=== PATIENT | female | born 1955 | race Caucasian/White ===

== ENCOUNTER 2022-07-12 08:22 | Day surgery (SDC) | payer OTHER ==
[~2022-07-12] VITALS: Ht 157.5 cm; Wt 78.9 kg
[~2022-07-12 08:22] MED LIST: AMLODIPINE BES2.5 MG PO; BRIMONIDINE TART5 ML OPTH; CLOPIDOGREL75 MG PO; ESTRADIOL0.5 MG PO; FISH OIL 1,2001 EACH PO; LIPITOR40 MG PO; LISINOPRIL40 MG PO; LOW DOSE ASPIRI81 MG PO; MEDROXYPROGEST2.5 MG PO; METOPROLOL SUCC25 MG PO; PREDNISONE20 MG PO; TIMOPTIC5 M1 OPTH; VITAMIN C60 MG PO; VITAMIN D350 MCG PO
--- NOTE | 2022-07-12 10:03 | NUR ---
07/12/22 Sofía3 Taniya Paniagua 0997-PATIENT ARRIVED TO PACU ON 2L NC RR EVEN. PATIENT REACTIVE TO VERBAL STIMULI ABDOMEN SOFT. IVF INFUSING. 1003-PATIENT SLEEPING 2L NC RR EVEN 100%
--- NOTE | 2022-07-12 11:38 | NUR ---
LE 1130 PATIENT BACK FROM PACU. REPORT RECIEVED FROM LIZY MORGAN. PATIENT IS ALERT AND ORIENTED. BREATHING EQUAL AND UNLABORED. OXYGEN SATURATIONS ABOVE 95% ON ROOM AIR. PATIENT DENIES ANY PAIN OR BEING NAUSEATED. PATIENT SALINE LOCKED. PATIENT AT BEDSIDE. CALL LIGHT WITHIN REACH NO FUTHER NEEDS. NO QUESTIONS AT THIS TIME.
--- NOTE | 2022-07-13 08:02 | OR ---
[facility] [address] [place], [place] [address] Signed DATE OF OPERATION: 07/12/2022 SURGEON: Purnima Acevedo MD PREOPERATIVE DIAGNOSES: 1. Personal history of colonic polyps in 2016 at age 58. 2. Diverticulosis. 3. Hemorrhoids. 4. External anal skin tag x1. POSTOPERATIVE DIAGNOSES: 1. Small to moderate sized anterior midline external anal skin tag. 2. Minimal sigmoid diverticulosis. 3. 3 mm polyps x2 at 7 cm. PROCEDURE: Colonoscopy with hot biopsy. ESTIMATED BLOOD LOSS: None. INDICATIONS: Milly is a 66-year-old female, who comes for followup colonoscopy. Her screening colonoscopy in 2016 at the age of 58 showed an anterior midline anal skin tag. There was some concern about minimal hemorrhoids and minimal diverticulosis. She also had a 5 mm tubular adenomatous polyp removed. She had done well with the Versed and fentanyl. We asked her to return in 5 years. About a year ago, she was having some chest pain and was found to have a heart murmur. She went to see her lifter, Dr. Rosalinda Lopez. Apparently everything came out fine. She is actually scheduled to see her lifter tomorrow for just general followup. She has no lower GI complaints. There is no family history of colon cancer or polyps. In the office, I gave her a pamphlet on colonoscopy. She recalls the nature of the test. There is risk including, but not limited to gas bloating, crampy abdominal pain, bleeding, perforation requiring surgery, and missed diagnosis. We also reviewed the written instructions for the bowel prep line by line. She recalls the need for IV conscious sedation. She expressed understanding and wished to proceed. PROCEDURE NOTE: Milly was taken into our endoscopy suite and placed in the left lateral decubitus position. She was given IV sedation with 6 mg of Versed and 150 mcg of fentanyl. A Electronically Signed By: PURNIMA ACEVEDO MD 07/13/22 0802 PATIENT NAME: MILLY CASTILLO OPERATIVE REPORT DATE OF : 59 REPORT #: [id number] PHYSICIAN: PURNIMA ACEVEDO MD PCP: JAIMIE ROBLES [facility] REPORT IS CONFIDENTIAL AND NOT TO BE RELEASED WITHOUT AUTHORIZATION [facility] [address] [place], [place] [address] Signed digital rectal exam was performed and she does have a small to moderate sized external anal skin tag in her anterior midline. She had good sphincter tone. Very little in the way of external hemorrhoids. No masses noted. The adult colonoscope was introduced, advanced all around into the cecum under direct visualization of the camera without difficulty. Her prep was quite excellent. We could easily see the appendiceal orifice and the ileocecal valve. The scope was then slowly withdrawn. We took pictures throughout for photodocumentation. She does have sigmoid diverticulosis. They were small to moderate in size, few in number, and scattered about. Once in the rectum, she had two tiny polyps at 7 cm, which were easily removed with a hot biopsy forceps. Upon retroflexion of the scope, I really did not see much in the way of any internal hemorrhoid tissue. After this, the gas was suctioned out and the colonoscope removed. Milly tolerated the procedure quite well. RECOMMENDATIONS: I will see Milly back in my office in 7 to 14 days to review her results. She will probably be on the five year plan. Purnima Acevedo MD [facility]/MODL /[id number] cc: SHARIF Silva MD Copies: JAIMIE ROBLES ANDREW L MD ~ Electronically Signed By: PURNIMA ACEVEDO MD 07/13/22 0802 PATIENT NAME: MILLY CASTILLO OPERATIVE REPORT DATE OF : 59 REPORT #: [id number] PHYSICIAN: PURNIMA ACEVEDO MD PCP: JAIMIE ROBLES REPORT IS CONFIDENTIAL AND NOT TO BE RELEASED WITHOUT AUTHORIZATION
--- NOTE | 2022-07-16 14:17 | PATH ---
[facility] [address] [place], [place] [address] Signed SPECIMEN(S): A RECTAL POLYP AT 7CM SPECIMEN SOURCE: A. RECTAL POLYP AT 7CM CLINICAL HISTORY: History of polyps, diverticulosis, polyps. Postop: Diverticulosis, external anal skin tag, rectal polyps. FINAL PATHOLOGIC DIAGNOSIS: Rectal polyp at 7 cm: - Hyperplastic polyp (one fragment). JVR:[id number] MICROSCOPIC EXAMINATION: Histologic sections of all submitted blocks are examined by light microscopy. These findings, together with the gross examination, support the pathologic diagnosis. GROSS DESCRIPTION: The specimen, labeled and designated "Hascall, rectal polyp at 7 cm," is received in formalin and consists of one nj soft tissue fragment, 0.3 cm. Entirely submitted in (A1). JS (under the direct supervision of a pathologist) The Gross Description was prepared using a voice recognition system. The report was reviewed for accuracy; however, sound-alike word errors, addition and/or deletions may occur. If there is any question about this report, please contact Client Services. PERFORMING LABORATORY: The technical component was performed by [facility], [address] [place] [id number] (CLIA# [id number]). Professional interpretation was performed by [facility], [address] [place] [id number] (CLIA#: [id number]). Diagnostician: Nickolas Sellers MD Pathologist Electronically Signed 07/16/2022 PATIENT NAME: MILLY CASTILLO PATHOLOGY DATE OF : 59 REPORT #: [id number] PHYSICIAN: GIGI SALAS PCP: JAIMIE ROBLES PAC REPORT IS CONFIDENTIAL AND NOT TO BE RELEASED WITHOUT AUTHORIZATION
== END 2022-07-12 11:50 | disposition home or self-care (01) ==
LOC: OPS 08:22 → DS 08:22 → OPS 09:45 → DS 09:45 → OPS 11:50
PROVIDERS: ATTEND Colon & Rectal Surgery
PROC: 0DDM8ZX Extraction of Descending Colon, Via Natural or Artificial Opening Endoscopic, Diagnostic (ICD-10-PCS; principal; 2022-07-12 09:45)
DX: Z12.11 Encounter for screening for malignant neoplasm of colon (principal); K62.1 Rectal polyp; I10 Essential (primary) hypertension; K57.30 Diverticulosis of large intestine without perforation or abscess without bleeding; E78.00 Pure hypercholesterolemia, unspecified; K64.0 First degree hemorrhoids; R01.1 Cardiac murmur, unspecified; K64.4 Residual hemorrhoidal skin tags; Z86.010 Personal history of colon polyps
CPT/HCPCS: 99153; G0500; J2250; J3010; J7121

== ENCOUNTER 2022-08-24 05:40 | Day surgery (SDC) | payer MEDICARE, OTHER ==
[~2022-08-24] VITALS: Ht 157.5 cm; Wt 76.0 kg
[~2022-08-24 05:40] MED LIST changes: -ESTRADIOL0.5 MG PO; +ESTRADIOL0.5 MG TD; +MULTI VITAMIN1 EACH PO
[2022-08-24] MEDS ORDERED: TRAMADOL HCL50 MG PO (07:28)
--- NOTE | 2022-08-24 07:45 | NUR ---
08/24/22 0745 Dejah Joseph 0772 PT ARRIVED TO PACU, RESP EVEN AND UNLABORED BUT SHALLOW. PT STARTED MOVING IN BED AND RN REORIENTING PT TO PACU. PT DENIES PAIN. PT EYES REMAIN CLOSED. SMALL AMOUNT OF SNORING NOTED AND HOB INCREASED SLIGHTLY. 0718 O2 MASK REMOVED, PT GRABBING FOR HER FACE AND RN HELPS PT REST ARMS DOWN AND RIGHT HAND ON ICE AND PILLOW. RN ENCOURAGES PT TO REST ARM. PT REPORTS NUMBNESS IN HAND AND EDUCATION GIVEN. PT ASKING QUESTIONS AND TALKING TO RN. PLAN OF CARE DISCUSSED. 0731 PT RESTING IN BED AND CONTINUES TO DENY PAIN AND NAUSEA. WARM BLACKET PLACED.
--- NOTE | 2022-08-24 09:22 | OR ---
[facility] [address] [place], [place] [address] Signed DATE OF OPERATION: 08/24/2022 SURGEON: Shasta Quintana MD PREOPERATIVE DIAGNOSIS: Carpal tunnel syndrome, right. POSTOPERATIVE DIAGNOSIS: Carpal tunnel syndrome, right. PROCEDURE PERFORMED: Carpal tunnel release, right. CONTACT LENS BLOCKER: None. ANESTHESIA: Nneka block. TOURNIQUET TIME: 20 minutes. BRIEF HISTORY: Milly is a 67-year-old female with progressive worsening numbness and pain in her wrist and hand. Nerve conduction studies were consistent with the above. Risks and benefits of operative treatment were discussed with her. She elected to proceed DESCRIPTION OF OPERATION: Once consent was obtained, she was taken to the operating room. After adequate anesthesia, she was left on the day surgery bed and hand table was brought in. The arm was prepped and draped in the standard sterile fashion. A 1.5 cm incision was made in the distal wrist crease, carried through the skin and subcutaneous tissue. The palmaris longus was identified, retracted and protected. The soft tissue was dissected off the transverse carpal ligament under loupe magnification, this was dissected free distally and proximally. The ligament was then transected approximately a cm and distally to the distal extent again under direct visualization with . This was then palpated using a [place] and found to be completely released. The wound was copiously irrigated with normal saline, closed with 3-0 nylon and injected with 7 mL of plain 0.25% Marcaine. Wound was dressed with bacitracin, Adaptic, 4 x 8s, and gauze. She tolerated the Electronically Signed By: SHASTA QUINTANA MD 08/24/22 0922 PATIENT NAME: MILLY CASTILLO OPERATIVE REPORT DATE OF : 59 REPORT #: [id number] PHYSICIAN: SHASTA QUINTANA MD PCP: JAIMIE ROBLES REPORT IS CONFIDENTIAL AND NOT TO BE RELEASED WITHOUT AUTHORIZATION [address] [place], [place] [address] Signed procedure well. All sponge, needle, and instrument counts were correct. Shasta Quintana MD [facility] /[id number] Copies: ~ Electronically Signed By: SHASTA QUINTANA MD 08/24/22 0922 PATIENT NAME: MILLY CASTILLO OPERATIVE REPORT DATE OF : 59 REPORT #: [id number] PHYSICIAN: SHASTA QUINTANA MD PCP: ROBLES,JAIMIE PAC REPORT IS CONFIDENTIAL AND NOT TO BE RELEASED WITHOUT AUTHORIZATION
== END 2022-08-24 08:23 | disposition home or self-care (01) ==
LOC: DS 05:40
PROVIDERS: ATTEND Specialist
PROC: 01N50ZZ Release Median Nerve, Open Approach (ICD-10-PCS; principal; 2022-08-24 07:00)
DX: G56.01 Carpal tunnel syndrome, right upper limb (principal); I10 Essential (primary) hypertension
CPT/HCPCS: J0690; J2704; J7121